=== PATIENT | male | born 1955 | race Caucasian/White ===

== ENCOUNTER 2017-10-24 18:45 | Emergency (ER) | payer BC ==
[2017-10-24 18:56] VITALS: BP 149/94
--- NOTE | 2017-10-24 18:57 | UC ---
Respiratory Complaint HPI - HPI Summary HPI Summary: Pt presents with a dry cough for the past 5-6 days. He tells me that he was in his usual state of health until 5-6 days ago when he developed a dry cough that seems worse as the day goes on. Has a scratch at the back of his throat that always makes him cough. Says that he wants to get treated before he develops bronchitis. He has not taken anything for this. Denies fever, chills, sore throat, sinus symptoms, SOB, chest pain, abdominal pain, n/v/d/c, or body aches. - History of Current Complaint Chief Complaint: UCGeneralIllness Stated Complaint: URI Hx Obtained From: Patient Onset/Duration: Gradual Onset Severity Initially: Mild Severity Currently: Mild Pain Intensity: 1 Pain Scale Used: 0-10 Numeric Character: Cough: Nonproductive - Allergies/Home Medications Allergies/Adverse Reactions: Allergies Allergy/AdvReac Type Severity Reaction Status Date / Time Carisoprodol [From Soma] Allergy Swelling Verified 10/24/17 18:48 Of Face,Lips,& Throat Ciprofloxacin [From Cipro] Allergy Swelling Verified 10/24/17 18:48 Of Face,Lips,& Throat Dextromethorphan Allergy Swelling Verified 10/24/17 18:48 [From NyQuil Nighttime Of Cold/Flu Medicine] Face,Lips,& Throat Doxylamine Allergy Swelling Verified 10/24/17 18:48 [From NyQuil Nighttime Of Cold/Flu Medicine] Face,Lips,& Throat Ethanol Allergy Swelling Verified 10/24/17 18:48 [From NyQuil Nighttime Of Cold/Flu Medicine] Face,Lips,& Throat Pseudoephedrine Allergy Swelling Verified 10/24/17 18:48 [From NyQuil Nighttime Of Cold/Flu Medicine] Face,Lips,& Throat Home Medications: Home Medications Lisinopril TAB* [Prinivil TAB*] 10 mg PO DAILY 10/24/17 [History Confirmed 10/24] Pramipexole TAB* [Mirapex TAB*] 0.125 mg PO BEDTIME 10/24/17 [History Confirmed 10/24/17] PMH/Surg Hx/FS Hx/Imm Hx Cardiovascular History: Hypertension - Surgical History Surgical History: Yes Surgery Procedure, Year, and Place: tonsils; inguinal hernia - Family History Known Family History: Positive: Hypertension - Social History Occupation: Retired Lives: With Family Alcohol Use: Occasionally Substance Use Type: None Smoking Status (MU): Never Smoked Tobacco Review of Systems Constitutional: Negative Skin: Negative Eyes: Negative ENT: Negative Respiratory: Cough Cardiovascular: Negative Gastrointestinal: Negative Musculoskeletal: Negative Neurological: Negative Psychological: Negative All Other Systems Reviewed And Are Negative: Yes Physical Exam Triage Information Reviewed: Yes Appearance: Well-Appearing, No Pain Distress, Well-Nourished Vital Signs: Initial Vital Signs Temp 98.9 F 10/24/17 18:50 Pulse 103 10/24/17 18:50 Resp 18 10/24/17 18:50 BP 149/94 10/24/17 18:50 Pulse Ox 98 10/24/17 18:50 Vital Signs Reviewed: Yes Eyes: Positive: Conjunctiva Clear. Negative: Conjunctiva Inflamed, Discharge ENT: Positive: Hearing grossly normal, Pharynx normal, TMs normal, Uvula midline. Negative: Pharyngeal erythema, Nasal congestion, Nasal drainage, TM bulging, TM dull, TM red, Tonsillar swelling, Tonsillar exudate, Hoarse voice, Sinus tenderness Neck: Positive: Supple, Nontender, No Lymphadenopathy Respiratory: Positive: Chest non-tender, Lungs clear, Normal breath sounds, No respiratory distress, No accessory muscle use Cardiovascular: Positive: RRR, No Murmur, Pulses Normal Neurological: Positive: Alert Psychological: Positive: Age Appropriate Behavior Skin: Negative: rashes UC Diagnostic Evaluation - Laboratory O2 Sat by Pulse Oximetry: 98 Respiratory Course/Dx - Course Course Of Treatment: Suspect bronchitis vs viral cough. No need for anbx at this time. - Differential Dx/Diagnosis Provider Diagnoses: Bronchitis Discharge - Discharge Plan Condition: Stable Disposition: HOME Prescriptions: Benzonatate CAP* [Tessalon 100 MG CAP*] 100 mg PO TID PRN #21 cap PRN Reason: Cough Guaifenesin-Codeine [G Tussin AC 100-10 mg/5Ml] 5 ml PO BEDTIME PRN #30 ml MDD 5mL PRN Reason: Cough Patient Education Materials: Acute Bronchitis (ED) Referrals: Eleazar Carlos MD [Primary Care Provider] - Additional Instructions: If you develop a fever, shortness of breath, chest pain, new or worsening symptoms - please call your PCP or go to the ED. Your blood pressure was high at todays visit. Please see your primary provider within 4 weeks for recheck and re-evaluation
== END 2017-10-24 19:16 | disposition home or self-care (01) ==
LOC: UCEAST 18:45
DX: J40 Bronchitis, not specified as acute or chronic (principal); I10 Essential (primary) hypertension
CPT/HCPCS: 99212; G0463

== ENCOUNTER 2018-01-19 18:22 | Emergency (ER) | payer BC ==
--- NOTE | 2018-01-19 18:36 | UC ---
Throat Pain/Nasal Avelino HPI - HPI Summary HPI Summary: Pt presents with sinus pain/pressure/congestion for the last week - getting progressively worse. Has not been taking anything OTC. Denies fever, chills, SOB , chest pain, abdominal pain, n/v/d/c. - History of Current Complaint Stated Complaint: SINUS PAIN,COLD Time Seen by Provider: 01/19/18 18:36 Hx Obtained From: Patient Onset/Duration: Gradual Onset Severity: Moderate Pain Intensity: 6 Pain Scale Used: 0-10 Numeric - Allergies/Home Medications Allergies/Adverse Reactions: Allergies Allergy/AdvReac Type Severity Reaction Status Date / Time acetaminophen [From NyQuil] Allergy Swelling Verified 01/19/18 18:49 Of Face,Lips,& Throat carisoprodol [From Soma] Allergy Swelling Verified 01/19/18 18:49 Of Face,Lips,& Throat ciprofloxacin [From Cipro] Allergy Swelling Verified 01/19/18 18:50 Of Face,Lips,& Throat dextromethorphan Allergy Swelling Verified 01/19/18 18:49 [From NyQuil] Of Face,Lips,& Throat doxylamine [From NyQuil] Allergy Swelling Verified 01/19/18 18:49 Of Face,Lips,& Throat pseudoephedrine [From NyQuil] Allergy Swelling Verified 01/19/18 18:49 Of Face,Lips,& Throat Home Medications: Home Medications Cholecalciferol (Vitamin D3) [Vitamin D3] 2,000 unit PO DAILY 01/19/18 [History Confirmed 01/19/18] Magnesium Oxide [Kp Mag-Oxide Magnesium] 400 mg PO EVERY OTHER DAY 01/19/18 [ History Confirmed 01/19/18] PMH/Surg Hx/FS Hx/Imm Hx Cardiovascular History: Hypertension - Surgical History Surgical History: Yes Surgery Procedure, Year, and Place: tonsils; inguinal hernia - Family History Known Family History: Positive: Hypertension - Social History Occupation: Employed Full-time Lives: With Family Alcohol Use: Occasionally Substance Use Type: None Smoking Status (MU): Never Smoked Tobacco Review of Systems Constitutional: Negative Skin: Negative Eyes: Negative ENT: Nasal Discharge, Sinus Congestion, Sinus Pain/Tenderness Respiratory: Negative Cardiovascular: Negative Gastrointestinal: Negative Motor: Negative Neurovascular: Negative Neurological: Negative Psychological: Negative All Other Systems Reviewed And Are Negative: Yes Physical Exam - Summary Physical Exam Summary: GENERAL: NAD. WDWN HEENT: NC/AT. Conjunctiva clear without inflammation or discharge. TMs intact , no bulging, erythema, or edema. Nasal mucosa mildly swollen and erythematous with clear discharge. TTP maxillary and frontal sinus. Posterior oropharynx without exudates, erythema, or tonsillar enlargement. Uvula midline. NECK: Supple without lymphadenopathy CHEST: CTAB. No r/r/w. No accessory muscle use. Breathing comfortably and in no distress. CV: RRR. Without m/r/g. Pulses intact. SKIN: No rash or erythema noted. NEURO: Alert. CN II-XII grossly intact. PSYCH: Age appropriate behavior. Triage Information Reviewed: Yes Throat Pain/Nasal Course/Dx - Course Course Of Treatment: Sinusitis - pt says that zpak works well for him and he tolerates this without difficulty. - Differential Dx/Diagnosis Provider Diagnoses: Sinusitis Discharge - Sign-Out/Discharge Documenting (check all that apply): Discharge - Discharge Plan Condition: Stable Disposition: HOME Prescriptions: Azithromycin TAB* [Zithromax TAB (Z-ANNY) 250 mg #6 tabs] 2 tab PO .TODAY, THEN 1 DAILY #1 anny Patient Education Materials: Sinusitis (ED) Referrals: Eleazar Carlos MD [Primary Care Provider] - Additional Instructions: If you develop a fever, shortness of breath, chest pain, new or worsening symptoms - please call your PCP or go to the ED. Your blood pressure was high at todays visit. Please see your primary provider within 4 weeks for recheck and re-evaluation. - Billing Disposition and Condition Condition: STABLE Disposition: HOME
[2018-01-19 18:41] VITALS: BP 142/74
== END 2018-01-19 19:20 | disposition home or self-care (01) ==
LOC: UCEAST 18:22
DX: J32.9 Chronic sinusitis, unspecified (principal); Z88.6 Allergy status to analgesic agent; Z88.3 Allergy status to other anti-infective agents; Z88.8 Allergy status to other drugs, medicaments and biological substances
CPT/HCPCS: 99212; G0463

== ENCOUNTER 2018-03-23 13:43 | Emergency (ER) | payer BC ==
[2018-03-23 13:51] VITALS: BP 126/73
--- NOTE | 2018-03-23 13:52 | UC ---
Respiratory Complaint HPI - HPI Summary HPI Summary: 62 yo male presents with a dry cough for the last two nights. He tells me that he suffers from post nasal drip and sometimes this makes his throat tickle and he coughs a lot. His PCP will usually give him tessalon and cough syrup at bedtime which helps a lot. Has been taking sudafed OTC with no relief. Denies fever, chills, sore throat, SOB, chest pain. - History of Current Complaint Hx Obtained From: Patient Onset/Duration: Sudden Onset Severity Currently: None Pain Intensity: 0 Character: Cough: Nonproductive <Finn Root - Last Filed: 03/23/18 14:04> <Enrique Conner - Last Filed: 03/23/18 14:20> - History of Current Complaint Chief Complaint: UCGeneralIllness Stated Complaint: COUGH Time Seen by Provider: 03/23/18 13:52 - Allergies/Home Medications Allergies/Adverse Reactions: Allergies Allergy/AdvReac Type Severity Reaction Status Date / Time carisoprodol [From Soma] Allergy Swelling Verified 03/23/18 13:52 Of Face,Lips,& Throat ciprofloxacin [From Cipro] Allergy Swelling Verified 03/23/18 13:52 Of Face,Lips,& Throat dextromethorphan Allergy Swelling Verified 03/23/18 13:52 [From NyQuil] Of Face,Lips,& Throat doxylamine [From NyQuil] Allergy Swelling Verified 03/23/18 13:52 Of Face,Lips,& Throat pseudoephedrine [From NyQuil] Allergy Swelling Verified 03/23/18 13:52 Of Face,Lips,& Throat PMH/Surg Hx/FS Hx/Imm Hx Cardiovascular History: Hypertension Neurological History: Dementia - Surgical History Surgical History: Yes Surgery Procedure, Year, and Place: tonsils; inguinal hernia - Family History Known Family History: Positive: Hypertension - Social History Lives: With Family Alcohol Use: Occasionally Alcohol Amount: 1 glass wine /day Substance Use Type: None Smoking Status (MU): Never Smoked Tobacco <Finn Root - Last Filed: 03/23/18 14:04> Review of Systems Constitutional: Negative Skin: Negative Eyes: Negative ENT: Negative Respiratory: Cough Cardiovascular: Negative Gastrointestinal: Negative Neurovascular: Negative Neurological: Negative Psychological: Negative All Other Systems Reviewed And Are Negative: Yes <Finn Root - Last Filed: 03/23/18 14:04> Physical Exam - Summary Physical Exam Summary: GENERAL: NAD. WDWN. No pain distress. SKIN: No rashes, sores, lesions, or open wounds. HEENT: Head: AT/NC Eyes: EOM intact. Conjunctiva clear without inflammation or discharge. Ears: Hearing grossly normal. TMs intact, no bulging, erythema, or edema. Nose: Nasal mucosa pink and moist. NTTP maxillary and frontal sinus. Throat: Posterior oropharynx without exudates, erythema, or tonsillar enlargement. Uvula midline. NECK: Supple. Nontender. No lymphadenopathy. CHEST: CTAB. No r/r/w. No accessory muscle use. Breathing comfortably and in no distress. CV: RRR. Without m/r/g. Pulses intact. Brisk cap refill. NEURO: Alert. CN II-XII grossly intact. PSYCH: Age appropriate behavior. Triage Information Reviewed: Yes Vital Signs: Initial Vital Signs Temp 98.8 F 03/23/18 13:48 Pulse 75 03/23/18 13:48 Resp 18 03/23/18 13:48 BP 126/73 03/23/18 13:48 Pulse Ox 99 03/23/18 13:48 <Finn Root - Last Filed: 03/23/18 14:04> Vital Signs: Initial Vital Signs Temp 98.8 F 03/23/18 13:48 Pulse 75 03/23/18 13:48 Resp 18 03/23/18 13:48 BP 126/73 03/23/18 13:48 Pulse Ox 99 03/23/18 13:48 <Enrique Conner - Last Filed: 03/23/18 14:20> Diagnostic Evaluation - Laboratory O2 Sat by Pulse Oximetry: 99 <Finn Root - Last Filed: 03/23/18 14:04> Respiratory Course/Dx - Course Course Of Treatment: Suspect cough caused by his post nasal drip. Advised to try OTC claritin in addition to rxs - Differential Dx/Diagnosis Provider Diagnoses: Cough <Finn Root - Last Filed: 03/23/18 14:04> Discharge - Sign-Out/Discharge Documenting (check all that apply): Discharge/Admit/Transfer - Billing Disposition and Condition Condition: STABLE Disposition: Home <Finn Root - Last Filed: 03/23/18 14:04> - Billing Disposition and Condition Condition: STABLE Disposition: Home <Enrique Conner - Last Filed: 03/23/18 14:20> - Discharge Plan Condition: Stable Disposition: HOME Prescriptions: Benzonatate CAP* [Tessalon 100 MG CAP*] 100 mg PO TID PRN #21 cap PRN Reason: Cough Codeine Phosphate/Guaifenesin [Guaifen-Codeine 100-10 mg/5 ml] 5 ml PO BEDTIME PRN #35 ml MDD 5mL PRN Reason: Cough Patient Education Materials: Acute Cough (ED) Referrals: Eleazar Carlos MD [Primary Care Provider] - Additional Instructions: If you develop a fever, shortness of breath, chest pain, new or worsening symptoms - please call your PCP or go to the ED. Per institutional requirements, I have reviewed the chart, however, I was not consulted specifically or made aware of this patient by the above midlevel provider. I did not personally evaluate, interact with , or disposition this patient.
== END 2018-03-23 14:17 | disposition home or self-care (01) ==
LOC: UCEAST 13:43
DX: R05 Cough (principal); R09.82 Postnasal drip; I10 Essential (primary) hypertension; Z88.8 Allergy status to other drugs, medicaments and biological substances; Z88.1 Allergy status to other antibiotic agents
CPT/HCPCS: 99212; G0463

== ENCOUNTER 2018-05-13 07:56 | Emergency (ER) | payer BC ==
[2018-05-13 08:11] VITALS: BP 155/94
[2018-05-13] MEDS ORDERED: Tetan/Diph/Pertus SYR(Tdap)* 0.5 ML SYR(BOOSTRIX) use SYR IM ONE (08:14)
--- NOTE | 2018-05-13 08:49 | UC ---
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 ACCOMPANIED BY HIS FRIEND WHO REMOVED THE FISH HOOK. PATIENT IS HERE FOR TDAP BOOSTER. - History of Current Complaint Chief Complaint: UCSkin Time Seen by Provider: 05/13/18 08:14 Stated Complaint: FISH LURE IN HAND Hx Obtained From: Patient Onset/Duration: Sudden Onset, Lasting Hours, Still Present Timing: Constant Onset Severity: Mild Current Severity: Mild Pain Intensity: 0 Pain Scale Used: 0-10 Numeric Location: Hand (Left) - 2ND FINGER Character: Pain Aggravating Factor(s): Touch Alleviating Factor(s): Nothing - Allergy/Home Medications Allergies/Adverse Reactions: Allergies Allergy/AdvReac Type Severity Reaction Status Date / Time carisoprodol [From Soma] Allergy Swelling Verified 05/13/18 08:11 Of Face,Lips,& Throat ciprofloxacin [From Cipro] Allergy Swelling Verified 05/13/18 08:11 Of Face,Lips,& Throat dextromethorphan Allergy Swelling Verified 05/13/18 08:11 [From NyQuil] Of Face,Lips,& Throat doxylamine [From NyQuil] Allergy Swelling Verified 05/13/18 08:11 Of Face,Lips,& Throat pseudoephedrine [From NyQuil] Allergy Swelling Verified 05/13/18 08:11 Of Face,Lips,& Throat Review of Systems Constitutional: Negative Skin: Other - PUNCTURE WOUND LEFT INDEX FINGER Respiratory: Negative Cardiovascular: Negative Gastrointestinal: Negative All Other Systems Reviewed And Are Negative: Yes PMH/Surg Hx/FS Hx/Imm Hx - Additional Past Medical History Additional PMH: RESTLESS LEGS Cardiovascular History: Hypertension - Surgical History Surgical History: Yes Surgery Procedure, Year, and Place: tonsils; inguinal hernia - Family History Known Family History: Positive: Hypertension - Social History Alcohol Use: Occasionally Alcohol Amount: 1 glass wine /day Substance Use Type: None Smoking Status (MU): Never Smoked Tobacco Physical Exam Triage Information Reviewed: Yes Appearance: Well-Appearing, No Pain Distress, Well-Nourished Vital Signs: Initial Vital Signs Temp 98.2 F 05/13/18 08:07 Pulse 69 05/13/18 08:07 Resp 18 05/13/18 08:07 BP 155/94 05/13/18 08:07 Pulse Ox 98 05/13/18 08:07 Vital Signs Reviewed: Yes Eyes: Positive: Conjunctiva Clear ENT: Positive: Hearing grossly normal Neck: Positive: Supple Respiratory: Positive: No respiratory distress, No accessory muscle use Cardiovascular: Positive: Pulses Normal Abdomen Description: Positive: Soft Musculoskeletal: Positive: ROM Intact, No Edema Neurological: Positive: Alert Psychological: Positive: Age Appropriate Behavior Skin: Positive: Other - PUNCTURE WOUND LEFT INDEX FINGER VOLAR SURFACE OVERLYING PROXIMAL PHALANX Course/Dx - Diagnoses Provider Diagnoses: 1. PUNCTURE WOUND - LEFT INDEX FINGER. 2. TDAP BOOSTER Discharge - Sign-Out/Discharge Documenting (check all that apply): Patient Departure - Discharge Plan Condition: Stable Disposition: HOME Prescriptions: Cephalexin CAP* [Keflex 500 CAP*] 1,000 mg PO BID #20 cap Patient Education Materials: Soft Tissue Foreign Body (ED), Puncture Wound (ED) Referrals: Eleazar Carlos MD [Primary Care Provider] - If Needed Additional Instructions: KEFLEX TWICE DAILY FOR 5 DAYS TO PREVENT INFECTION. KEEP THE AREA CLEAN AND COVERED WITH A BANDAGE UNTIL HEALED. SEEK FOLLOW-UP IF YOU DEVELOP SPREADING REDNESS OF THE SKIN, PURULENT DRAINAGE, FEVER, INCREASED PAIN OR ANY OTHER CONCERNING SYMPTOMS. TETANUS IMMUNIZATION GIVEN (TDAP): You have been given an immunization against tetanus. Please record this in your records. In general, a booster is needed only once every 10 years. The tetanus shot protects against tetanus or "lockjaw," which is a complication of certain wound infections (the tetanus shot cannot protect against the actual infection). The immunization site may become warm and red due to local reaction. If this occurs, apply warm compresses and take aspirin or ibuprofen to reduce inflammation and discomfort. Return for evaluation if the reaction becomes severe. - Billing Disposition and Condition Condition: STABLE Disposition: Home
== END 2018-05-13 08:50 | disposition home or self-care (01) ==
LOC: UCEAST 07:56
DX: S61.231A Puncture wound without foreign body of left index finger without damage to nail, initial encounter (principal); W26.8XXA Contact with other sharp object(s), not elsewhere classified, initial encounter; Y93.9 Activity, unspecified; Y92.9 Unspecified place or not applicable; Z23 Encounter for immunization; Z88.1 Allergy status to other antibiotic agents; Z88.8 Allergy status to other drugs, medicaments and biological substances
CPT/HCPCS: 90715; 99212; G0463

== ENCOUNTER 2018-08-28 07:09 | Emergency (ER) | payer BC ==
[2018-08-28 07:20] VITALS: BP 139/80
--- NOTE | 2018-08-28 07:20 | UC ---
UC General HPI - HPI Summary HPI Summary: 63-year-old otherwise healthy male presents with 3 total days of upper respiratory complaints with a cough gets worse at night. He reports minor nasal congestion without fever. He has had mild sore throat. He denies any shortness of breath, abdominal pain or diarrhea. He did get his flu vaccine this year. - History of Current Complaint Stated Complaint: COUGH Time Seen by Provider: 08/28/18 07:12 Hx Obtained From: Patient - Allergy/Home Medications Allergies/Adverse Reactions: Allergies Allergy/AdvReac Type Severity Reaction Status Date / Time carisoprodol [From Soma] Allergy Swelling Verified 08/28/18 07:13 Of Face,Lips,& Throat ciprofloxacin [From Cipro] Allergy Swelling Verified 08/28/18 07:13 Of Face,Lips,& Throat dextromethorphan Allergy Swelling Verified 08/28/18 07:13 [From NyQuil] Of Face,Lips,& Throat doxylamine [From NyQuil] Allergy Swelling Verified 08/28/18 07:13 Of Face,Lips,& Throat pseudoephedrine [From NyQuil] Allergy Swelling Verified 08/28/18 07:13 Of Face,Lips,& Throat PMH/Surg Hx/FS Hx/Imm Hx Previously Healthy: Yes - Surgical History Surgical History: Yes Surgery Procedure, Year, and Place: tonsils; inguinal hernia - Family History Known Family History: Positive: Hypertension - Social History Occupation: Employed Part-time, Retired Alcohol Use: Occasionally Alcohol Amount: 1 glass wine /day Substance Use Type: None Smoking Status (MU): Never Smoked Tobacco Review of Systems All Other Systems Reviewed And Are Negative: Yes Constitutional: Negative: Fever Skin: Negative: Rash ENT: Positive: Sore Throat, Nasal Discharge, Sinus Congestion. Negative: Ear Ache, Sinus Pain/Tenderness Respiratory: Positive: Cough. Negative: Shortness Of Breath Cardiovascular: Negative: Chest Pain Gastrointestinal: Negative: Vomiting Physical Exam Triage Information Reviewed: Yes Appearance: Well-Appearing, No Pain Distress, Well-Nourished Eyes: Positive: Conjunctiva Clear ENT: Positive: Pharyngeal erythema, Nasal congestion, Nasal drainage, TMs normal. Negative: Sinus tenderness Neck: Positive: Nontender, No Lymphadenopathy Respiratory: Positive: Lungs clear Cardiovascular: Positive: RRR Neurological: Positive: Alert Skin Exam: Normal Course/Dx - Course Course Of Treatment: Patient with minor cough, congestion. Treat symptomatically. - Diagnoses Provider Diagnosis: Upper respiratory infection Discharge - Sign-Out/Discharge Documenting (check all that apply): Patient Departure All imaging exams completed and their final reports reviewed: No Studies - Discharge Plan Condition: Improved Disposition: HOME Prescriptions: Benzonatate CAP* [Tessalon 100 MG CAP*] 100 mg PO Q6H PRN #30 cap PRN Reason: Cough Guaifenesin/Pseudo 600/60(NF) [Mucinex D 600/60 (NF)] 1 tab PO BID PRN #12 tab PRN Reason: Congestion Patient Education Materials: Upper Respiratory Infection (ED) Referrals: Eleazar Carlos MD [Primary Care Provider] - Additional Instructions: Humidifier while sleeping. Steam shower before bed. Maria Guadalupe pot or sinus rinse may help. Return with fever, difficulty breathing, worse, new symptoms or other concerns. Follow-up with your family doctor in the next several days. - Billing Disposition and Condition Condition: IMPROVED Disposition: Home - Attestation Statements Document Initiated by Jeevanibaureliano: No
== END 2018-08-28 07:25 | disposition home or self-care (01) ==
LOC: UCEAST 07:09
DX: J06.9 Acute upper respiratory infection, unspecified (principal); Z88.1 Allergy status to other antibiotic agents; Z88.8 Allergy status to other drugs, medicaments and biological substances
CPT/HCPCS: 99212; G0463

== ENCOUNTER 2018-09-01 09:36 | Emergency (ER) | payer BC | END 2018-09-01 10:07 | disposition left against medical advice (07) | LOC: UCEAST 09:36 | DX: R09.89 Other specified symptoms and signs involving the circulatory and respiratory systems (principal); Z53.21 Procedure and treatment not carried out due to patient leaving prior to being seen by health care provider ==

== ENCOUNTER 2018-09-01 11:11 | Emergency (ER) | payer BC ==
[2018-09-01 12:57] VITALS: BP 142/85
--- NOTE | 2018-09-01 13:20 | ED ---
Respiratory - HPI Summary HPI Summary: 63-year-old male presents with cough for the past week. He states the cough became worse. the cough has went from dry to productive cough. He denies any chest pain or shortness breath. No sore throat. Admits to sinus congestion. She has been taking Mucinex and Tessalon with some relief. States is concerned that he is getting bronchitis. Has no history of asthma or COPD. Is a smoker. - History of Current Complaint Chief Complaint: UCRespiratory Stated Complaint: COUGH,CONGESTED Time Seen by Provider: 09/01/18 13:17 Pain Intensity: 1 - Allergy/Home Medications Allergies/Adverse Reactions: Allergies Allergy/AdvReac Type Severity Reaction Status Date / Time carisoprodol [From Soma] Allergy Swelling Verified 09/01/18 12:54 Of Face,Lips,& Throat ciprofloxacin [From Cipro] Allergy Swelling Verified 09/01/18 12:54 Of Face,Lips,& Throat dextromethorphan Allergy Swelling Verified 09/01/18 12:54 [From NyQuil] Of Face,Lips,& Throat doxylamine [From NyQuil] Allergy Swelling Verified 09/01/18 12:54 Of Face,Lips,& Throat pseudoephedrine [From NyQuil] Allergy Swelling Verified 09/01/18 12:54 Of Face,Lips,& Throat Home Medications: Home Medications Lisinopril 10 mg PO DAILY WITH MEAL 09/01/18 [History Confirmed 09/01/18] Pramipexole [Mirapex] 1.5 mg PO TID 09/01/18 [History Confirmed 09/01/18] PMH/Surg Hx/FS Hx/Imm Hx Endocrine/Hematology History: Denies: Hx Diabetes, Hx Thyroid Disease Cardiovascular History: Reports: Hx Hypertension Respiratory History: Denies: Hx Asthma, Hx Chronic Obstructive Pulmonary Disease (COPD) GI History: Denies: Hx Ulcer Musculoskeletal History: Denies: Hx Rheumatoid Arthritis, Hx Osteoporosis - Surgical History Surgery Procedure, Year, and Place: tonsils; inguinal hernia Infectious Disease History: No Infectious Disease History: Denies: Hx Clostridium Difficile, Hx Hepatitis, Hx Human Immunodeficiency Virus (HIV), Hx of Known/Suspected MRSA, Hx Shingles, Hx Tuberculosis, Hx Known/ Suspected VRE, Hx Known/Suspected VRSA, History Other Infectious Disease, Traveled Outside the [place] in Last 30 Days - Family History Known Family History: Positive: Hypertension - Social History Alcohol Use: Weekly Alcohol Amount: 1 glass wine /day Substance Use Type: Reports: None Smoking Status (MU): Never Smoked Tobacco Review of Systems Negative: Fever Positive: Nasal Discharge. Negative: Sore Throat Negative: Chest Pain Positive: Cough. Negative: Shortness Of Breath All Other Systems Reviewed And Are Negative: Yes Physical Exam Triage Information Reviewed: Yes Vital Signs On Initial Exam: Initial Vitals Temp Pulse Resp BP Pulse Ox 97.9 F 81 18 142/85 100 09/01/18 12:54 09/01/18 12:54 09/01/18 12:54 09/01/18 12:54 09/01/18 12:54 Vital Signs Reviewed: Yes Appearance: Positive: Well-Appearing Skin: Positive: Warm, Dry Head/Face: Positive: Normal Head/Face Inspection Eyes: Positive: Normal, EOMI, FADY ENT: Positive: Normal ENT inspection, Pharynx normal, TMs normal Neck: Positive: Supple, Nontender, No Lymphadenopathy Respiratory/Lung Sounds: Positive: Clear to Auscultation, Breath Sounds Present Cardiovascular: Positive: Normal, RRR Abdomen Description: Positive: Nontender, Soft Bowel Sounds: Positive: Present Musculoskeletal: Positive: Normal Neurological: Positive: Normal Psychiatric: Positive: Normal Diagnostics - Vital Signs Vital Signs Temp Pulse Resp BP Pulse Ox 09/01/18 12:54 97.9 F 81 18 142/85 100 - Laboratory Lab Statement: Any lab studies that have been ordered have been reviewed, and results considered in the medical decision making process. - Radiology chest Radiology Interpretation Completed By: Radiologist Summary of Radiographic Findings: copd Disposition - Course Course Of Treatment: 63-year-old male presents with cough for the past week. He states the cough became worse. the cough has went from dry to productive cough. He denies any chest pain or shortness breath. No sore throat. Admits to sinus congestion. She has been taking Mucinex and Tessalon with some relief. States is concerned that he is getting bronchitis. Has no history of asthma or COPD. Is a smoker. On exam lungs clear to auscultation. Chest x- ray copd. We'll place on prednisone and Tessalon. Patient understands agrees with plan. - Differential Dx - Cardiopulmonary Differential Diagnoses - Cardiopulmonary: Bronchitis, Influenza, Lower Resp Infection - Diagnoses Provider Diagnoses: Upper respiratory infection Discharge - Sign-Out/Discharge Documenting (check all that apply): Patient Departure All imaging exams completed and their final reports reviewed: Yes - Discharge Plan Condition: Good Disposition: HOME Prescriptions: Benzonatate CAP* [Tessalon 100 MG CAP*] 100 mg PO TID #21 cap predniSONE TAB* [Deltasone TAB*] 50 mg PO DAILY #5 tab Patient Education Materials: Upper Respiratory Infection (ED) Referrals: Eleazar Carlos MD [Primary Care Provider] - Additional Instructions: Use Tessalon three times a day for cough Take steroid once a day for 5 days Use humidifier or place warm bowls of water around the room Cough can last up to 4 weeks Follow up with primary care physician in 5 days Return to ED if develop chest pain or shortness of breath or any new or worsening symptoms - Billing Disposition and Condition Condition: GOOD Disposition: Home - Attestation Statements Provider Attestation: Per institutional requirements, I have reviewed the chart, however, I was not consulted specifically or made aware of this patient by the midlevel provider. I did not personally evaluate, interact with , or disposition this patient.
== END 2018-09-01 13:52 | disposition home or self-care (01) ==
LOC: UCEAST 11:11
DX: J06.9 Acute upper respiratory infection, unspecified (principal); F17.210 Nicotine dependence, cigarettes, uncomplicated; Z88.1 Allergy status to other antibiotic agents; Z88.8 Allergy status to other drugs, medicaments and biological substances
CPT/HCPCS: 71046; 99212; G0463

== ENCOUNTER 2018-10-23 07:07 | Emergency (ER) | payer BC ==
[2018-10-23 07:15] VITALS: BP 132/82
--- NOTE | 2018-10-23 07:24 | UC ---
Throat Pain/Nasal Avelino HPI - HPI Summary HPI Summary: 63-year-old male comes to clinic today with a chief complaint of cough congestion runny nose for 3-4 days. Has been coughing up some sputum that yellow-green. He is not a smoker. He has been using some benzonatate which helps with the cough. When he is laying down the rhinorrhea is the back of his throat makes his cough worse. No fevers or chills. No wheezing. - History of Current Complaint Chief Complaint: UCRespiratory Stated Complaint: COUGH,CONGESTION Time Seen by Provider: 10/23/18 07:12 Pain Intensity: 0 - Allergies/Home Medications Allergies/Adverse Reactions: Allergies Allergy/AdvReac Type Severity Reaction Status Date / Time carisoprodol [From Soma] Allergy Swelling Verified 10/23/18 07:14 Of Face,Lips,& Throat ciprofloxacin [From Cipro] Allergy Swelling Verified 10/23/18 07:14 Of Face,Lips,& Throat dextromethorphan Allergy Swelling Verified 10/23/18 07:14 [From NyQuil] Of Face,Lips,& Throat doxylamine [From NyQuil] Allergy Swelling Verified 10/23/18 07:14 Of Face,Lips,& Throat pseudoephedrine [From NyQuil] Allergy Swelling Verified 10/23/18 07:14 Of Face,Lips,& Throat Home Medications: Home Medications Guaifenesin/Pseudoephedrne HCl [Mucinex D ER Tablet] 1 each PO DAILY PRN [History Confirmed 10/23/18] PMH/Surg Hx/FS Hx/Imm Hx Previously Healthy: Yes Cardiovascular History: Hypertension - Surgical History Surgical History: Yes Surgery Procedure, Year, and Place: tonsils; inguinal hernia - Family History Known Family History: Positive: Hypertension - Social History Alcohol Use: Occasionally Alcohol Amount: 1 glass wine /day Substance Use Type: None Smoking Status (MU): Never Smoked Tobacco Review of Systems All Other Systems Reviewed And Are Negative: Yes Constitutional: Positive: Negative Skin: Positive: Negative Eyes: Positive: Negative ENT: Positive: Sore Throat, Nasal Discharge, Sinus Congestion Respiratory: Positive: Cough Cardiovascular: Positive: Negative Gastrointestinal: Positive: Negative Motor: Positive: Negative Neurovascular: Positive: Negative Musculoskeletal: Positive: Negative Neurological: Positive: Negative Psychological: Positive: Negative Is Patient Immunocompromised?: No Physical Exam Triage Information Reviewed: Yes Appearance: No Pain Distress, Well-Nourished, Ill-Appearing - mild Vital Signs: Initial Vital Signs Temp 98.8 F 10/23/18 07:11 Pulse 79 10/23/18 07:11 Resp 14 10/23/18 07:11 BP 132/82 10/23/18 07:11 Pulse Ox 98 10/23/18 07:11 Vital Signs Reviewed: Yes Eye Exam: Normal Eyes: Positive: Conjunctiva Clear ENT: Positive: Pharyngeal erythema, Nasal congestion, Nasal drainage, TMs normal Neck exam: Normal Neck: Positive: Supple Respiratory: Positive: Lungs clear, Normal breath sounds, No respiratory distress Cardiovascular: Positive: RRR Musculoskeletal Exam: Normal Musculoskeletal: Positive: Strength Intact, ROM Intact Neurological Exam: Normal Neurological: Positive: Alert, Muscle Tone Normal Psychological Exam: Normal Psychological: Positive: Age Appropriate Behavior Skin Exam: Normal Throat Pain/Nasal Course/Dx - Course Course Of Treatment: Patient reports the last time he was here prednisone help to get him better. He is also concerned perineal get worse as he is leaving town for 3 days. DISCUSSED VIRAL VERSES BACTERIAL INFECTION AND THE ROLE OF ANTIBIOTICS. THE PATIENT WISHES TO BE ON ANTIBIOTIC AT THIS TIME. - Differential Dx/Diagnosis Provider Diagnosis: Upper respiratory infection Discharge - Sign-Out/Discharge Documenting (check all that apply): Patient Departure All imaging exams completed and their final reports reviewed: No Studies - Discharge Plan Condition: Stable Disposition: HOME Prescriptions: Azithromyxin ANNY (NF) [Z-Anny (Zithromax) 250 mg tabs #6] 2 tab PO .TODAY, THEN 1 DAILY #6 tab Benzonatate CAP* [Tessalon 100 MG CAP*] 100 mg PO TID PRN #20 cap PRN Reason: Cough predniSONE TAB* [Deltasone 20 MG TAB*] 40 mg PO DAILY #10 tab Patient Education Materials: Upper Respiratory Infection (ED) Referrals: Eleazar Carlos MD [Primary Care Provider] - Additional Instructions: FOLLOW UP WITH YOUR DOCTOR IF NOT COMPLETELY IMPROVED. GET RECHECKED FOR ANY WORSENING OF YOUR CONDITION OR QUESTIONS OR CONCERNS. - Billing Disposition and Condition Condition: STABLE Disposition: Home
== END 2018-10-23 07:25 | disposition home or self-care (01) ==
LOC: UCEAST 07:07
DX: J06.9 Acute upper respiratory infection, unspecified (principal); Z88.1 Allergy status to other antibiotic agents; Z88.8 Allergy status to other drugs, medicaments and biological substances
CPT/HCPCS: 99212; G0463

== ENCOUNTER 2019-01-10 18:37 | Emergency (ER) | payer BC ==
[2019-01-10 18:45] VITALS: BP 147/84
--- NOTE | 2019-01-10 19:01 | UC ---
Throat Pain/Nasal Avelino HPI - HPI Summary HPI Summary: 63-year-old male comes in with a chief complaint of upper respiratory tract infection symptoms for about 4 days. Patient's rhinorrhea has turned green he' s having primarily sinus pressure and postnasal drip. He has had some coughing and sputum production but he feels like it's mostly postnasal drip. Denies any wheezing or chest congestion. He's tried [id number] medications was helped some with the symptoms but not very much. - History of Current Complaint Chief Complaint: UCGeneralIllness Stated Complaint: COUGH Time Seen by Provider: 01/10/19 18:54 Pain Intensity: 0 - Allergies/Home Medications Allergies/Adverse Reactions: Allergies Allergy/AdvReac Type Severity Reaction Status Date / Time carisoprodol [From Soma] Allergy Swelling Verified 01/10/19 18:45 Of Face,Lips,& Throat ciprofloxacin [From Cipro] Allergy Swelling Verified 01/10/19 18:45 Of Face,Lips,& Throat dextromethorphan Allergy Swelling Verified 01/10/19 18:45 [From NyQuil] Of Face,Lips,& Throat doxylamine [From NyQuil] Allergy Swelling Verified 01/10/19 18:45 Of Face,Lips,& Throat pseudoephedrine [From NyQuil] Allergy Swelling Verified 01/10/19 18:45 Of Face,Lips,& Throat Home Medications: Home Medications Doxylamine/Phenylep/Dm/Aspirin [Kelsi-[place] Day-Night Tab Eff] 1 tab PO Q6HR PRN 01/10/19 [History Confirmed 01/10/19] PMH/Surg Hx/FS Hx/Imm Hx Previously Healthy: Yes Cardiovascular History: Hypertension - Surgical History Surgical History: Yes Surgery Procedure, Year, and Place: tonsils; inguinal hernia - Family History Known Family History: Positive: Hypertension - Social History Alcohol Use: Daily Alcohol Amount: 1 glass wine /day Substance Use Type: None Smoking Status (MU): Never Smoked Tobacco Review of Systems All Other Systems Reviewed And Are Negative: Yes Constitutional: Positive: Negative Skin: Positive: Negative Eyes: Positive: Negative ENT: Positive: Sore Throat, Nasal Discharge, Sinus Congestion, Sinus Pain/ Tenderness Respiratory: Positive: Cough Cardiovascular: Positive: Negative Gastrointestinal: Positive: Negative Motor: Positive: Negative Neurovascular: Positive: Negative Musculoskeletal: Positive: Negative Neurological: Positive: Negative Psychological: Positive: Negative Is Patient Immunocompromised?: No Physical Exam Triage Information Reviewed: Yes Appearance: No Pain Distress, Well-Nourished, Ill-Appearing - MILD Vital Signs: Initial Vital Signs Temp 99.0 F 01/10/19 18:42 Pulse 79 01/10/19 18:42 Resp 22 01/10/19 18:42 BP 147/84 01/10/19 18:42 Pulse Ox 99 01/10/19 18:42 Vital Signs Reviewed: Yes Eye Exam: Normal Eyes: Positive: Conjunctiva Clear ENT: Positive: Pharyngeal erythema, Nasal congestion, Nasal drainage, TMs normal Neck: Positive: Supple Respiratory: Positive: Lungs clear, Normal breath sounds, No respiratory distress Cardiovascular: Positive: RRR Musculoskeletal Exam: Normal Musculoskeletal: Positive: Strength Intact, ROM Intact Neurological Exam: Normal Neurological: Positive: Alert, Muscle Tone Normal Psychological Exam: Normal Psychological: Positive: Age Appropriate Behavior Skin Exam: Normal Throat Pain/Nasal Course/Dx - Course Course Of Treatment: DISCUSSED VIRAL VERSES BACTERIAL INFECTION AND THE ROLE OF ANTIBIOTICS. THE PATIENT WISHES TO BE ON ANTIBIOTICS AT THIS TIME. - Differential Dx/Diagnosis Provider Diagnosis: Upper respiratory infection Discharge - Sign-Out/Discharge Documenting (check all that apply): Patient Departure All imaging exams completed and their final reports reviewed: No Studies - Discharge Plan Condition: Stable Disposition: HOME Prescriptions: Amoxicillin/Clavulanate TAB* [Augmentin TAB 875*] 875 mg PO BID #20 tab Patient Education Materials: Upper Respiratory Infection (ED) Referrals: Eleazar Carlos MD [Primary Care Provider] - Additional Instructions: FOLLOW UP WITH YOUR DOCTOR IF NOT COMPLETELY IMPROVED. GET REEVALUATED SOONER FOR WORSENING OF YOUR CONDITION OR QUESTIONS OR CONCERNS. - Billing Disposition and Condition Condition: STABLE Disposition: Home
== END 2019-01-10 19:09 | disposition home or self-care (01) ==
LOC: UCEAST 18:37
DX: J06.9 Acute upper respiratory infection, unspecified (principal); I10 Essential (primary) hypertension; Z88.8 Allergy status to other drugs, medicaments and biological substances; Z88.1 Allergy status to other antibiotic agents
CPT/HCPCS: 99212; G0463

== ENCOUNTER 2019-01-28 20:52 | Emergency (ER) | payer BC ==
[2019-01-28 20:59] VITALS: BP 120/77
--- NOTE | 2019-01-28 21:28 | UC ---
Ear Complaint HPI - HPI Summary HPI Summary: 63-year-old male presents with complaints of 2-3 weeks of bilateral ear fullness and decreased hearing. States he has a history of impacted cerumen which is required irrigation in the past. Denies fever, chills, ear pain, tinnitus, vertigo, or URI symptoms. - History of Current Complaint Chief Complaint: UCEar Stated Complaint: EARS CLOGGED Time Seen by Provider: 01/28/19 21:03 Hx Obtained From: Patient Pain Intensity: 0 - Allergies/Home Medications Allergies/Adverse Reactions: Allergies Allergy/AdvReac Type Severity Reaction Status Date / Time carisoprodol [From Soma] Allergy Swelling Verified 01/28/19 20:59 Of Face,Lips,& Throat ciprofloxacin [From Cipro] Allergy Swelling Verified 01/28/19 20:59 Of Face,Lips,& Throat dextromethorphan Allergy Swelling Verified 01/28/19 20:59 [From NyQuil] Of Face,Lips,& Throat doxylamine [From NyQuil] Allergy Swelling Verified 01/28/19 20:59 Of Face,Lips,& Throat pseudoephedrine [From NyQuil] Allergy Swelling Verified 01/28/19 20:59 Of Face,Lips,& Throat PMH/Surg Hx/FS Hx/Imm Hx Cardiovascular History: Hypertension - Surgical History Surgical History: Yes Surgery Procedure, Year, and Place: tonsils; inguinal hernia - Family History Known Family History: Positive: Hypertension - Social History Occupation: Employed Full-time Lives: With Family Alcohol Use: Occasionally Alcohol Amount: 1 glass wine /day Substance Use Type: None Smoking Status (MU): Never Smoked Tobacco Review of Systems All Other Systems Reviewed And Are Negative: Yes Constitutional: Negative: Fever, Chills Eyes: Negative: Drainage, Eye Redness ENT: Positive: Other - Bilateral ear fullness, decreased hearing.. Negative: Sore Throat, Ear Ache, Nasal Discharge, Sinus Congestion, Sinus Pain/Tenderness Respiratory: Negative: Cough Cardiovascular: Positive: Negative Gastrointestinal: Positive: Negative Genitourinary: Positive: Negative Musculoskeletal: Positive: Negative Neurological: Positive: Negative Is Patient Immunocompromised?: No Physical Exam - Summary Physical Exam Summary: GENERAL APPEARANCE: Well developed, well nourished, alert and cooperative, and appears to be in no acute distress. EYES: Conjunctiva clear. No drainage. EARS: Bilateral external auditory canals with cerumen impaction. TMs not visualized. NOSE: No nasal discharge. THROAT: Pharynx normal No tonsilar inflammation, swelling, exudate, or lesions. Uvula midline. Oral cavity normal. Teeth and gingiva in good general condition. NECK: Neck supple, non-tender without lymphadenopathy. CARDIAC: Normal S1 and S2. No S3, S4 or murmurs. Rhythm is regular. There is no peripheral edema, cyanosis or pallor. Extremities are warm and well perfused. Capillary refill is less than 2 seconds. Peripheral pulses intact. LUNGS: Clear to auscultation without rales, rhonchi, wheezing or diminished breath sounds. ABDOMEN: Positive bowel sounds. Soft, nondistended, nontender. No guarding or rebound. No masses or hepatosplenomegally. MUSKULOSKELETAL: ROM intact to all extremities. No joint erythema or tenderness. Normal muscular development. Normal gait. SKIN: Skin normal color, texture and turgor with no lesions or eruptions. Triage Information Reviewed: Yes Vital Signs: Initial Vital Signs Temp 98.8 F 01/28/19 20:56 Pulse 77 01/28/19 20:56 Resp 18 01/28/19 20:56 BP 120/77 01/28/19 20:56 Pulse Ox 98 01/28/19 20:56 Vital Signs Reviewed: Yes Re-Evaluation - Re-Evaluation First Eval Re-Evaluation Time: 21:30 Change: Improved Comment: The RN irrgated both ears and removed large amount of soft cerumen. Patient states post-irrigation hearing is much improved. Exam reveals clear bilateral external auditory canals with intact TMs that are opaque with good cone of light. Ear Complaint Course/Dx - Course Course Of Treatment: 63-year-old male presents with complaints of 2-3 weeks of bilateral ear fullness and decreased hearing. States he has a history of impacted cerumen which is required irrigation in the past. Denies fever, chills, ear pain, tinnitus, vertigo, or URI symptoms. Afebrile. Vital signs stable. Exam revealed bilateral cerumen impaction and otherwise unremarkable exam. His ears were irrigated when necessary and post irrigation patient reports improved hearing and exam reveals clear bilateral external auditory canals, intact TMs which were opaque with good cone of light. Patient is to follow-up with his primary care provider as needed. - Differential Dx/Diagnosis Differential Diagnosis/HQI/PQRI: Cerumen Impaction, Otitis Externa Provider Diagnosis: Impacted cerumen of both ears Discharge - Sign-Out/Discharge Documenting (check all that apply): Patient Departure All imaging exams completed and their final reports reviewed: No Studies - Discharge Plan Condition: Stable Disposition: HOME Patient Education Materials: Cerumen Impaction (ED) Referrals: Eleazar Carlos MD [Primary Care Provider] - If Needed - Billing Disposition and Condition Condition: STABLE Disposition: Home - Attestation Statements Provider Attestation: I was available for consult. Pt not seen by me.
== END 2019-01-28 21:40 | disposition home or self-care (01) ==
LOC: UCEAST 20:52
DX: H61.23 Impacted cerumen, bilateral (principal); I10 Essential (primary) hypertension; Z88.1 Allergy status to other antibiotic agents; Z88.8 Allergy status to other drugs, medicaments and biological substances
CPT/HCPCS: 99213; G0463

== ENCOUNTER 2019-03-14 13:52 | Emergency (ER) | payer BC ==
--- NOTE | 2019-03-14 14:01 | UC ---
Lower Extremity/Ankle HPI - HPI Summary HPI Summary: 63 yo male presents with LEFT great toe injury. He tells me that about 1.5 weeks ago he dropped his ipad on his left great toenail. Since that time has noticed a blood blister at the base of the nail. No pain with palpation or ambulation/weight bearing. - History of Current Complaint Stated Complaint: LT FOOT INJURY Time Seen by Provider: 03/14/19 14:01 Hx Obtained From: Patient Onset/Duration: Gradual Onset Severity Currently: None - Allergies/Home Medications Allergies/Adverse Reactions: Allergies Allergy/AdvReac Type Severity Reaction Status Date / Time carisoprodol [From Soma] Allergy Swelling Verified 03/14/19 14:04 Of Face,Lips,& Throat ciprofloxacin [From Cipro] Allergy Swelling Verified 03/14/19 14:04 Of Face,Lips,& Throat dextromethorphan Allergy Swelling Verified 03/14/19 14:04 [From NyQuil] Of Face,Lips,& Throat doxylamine [From NyQuil] Allergy Swelling Verified 03/14/19 14:04 Of Face,Lips,& Throat pseudoephedrine [From NyQuil] Allergy Swelling Verified 03/14/19 14:04 Of Face,Lips,& Throat PMH/Surg Hx/FS Hx/Imm Hx Cardiovascular History: Hypertension - Surgical History Surgical History: Yes Surgery Procedure, Year, and Place: tonsils; inguinal hernia - Family History Known Family History: Positive: Hypertension - Social History Occupation: Retired Lives: With Family Alcohol Use: Occasionally Alcohol Amount: 1 glass wine /day Substance Use Type: None Smoking Status (MU): Never Smoked Tobacco Review of Systems All Other Systems Reviewed And Are Negative: Yes Constitutional: Positive: Negative Skin: Positive: Other - Left great toe blood blister Respiratory: Positive: Negative Cardiovascular: Positive: Negative Musculoskeletal: Positive: Negative Neurological: Positive: Negative Psychological: Positive: Negative Physical Exam - Summary Physical Exam Summary: GENERAL: NAD. WDWN. No pain distress. SKIN: LEFT GREAT TOE: At base of nail there is a 7mm blood blister and area of subungal hematoma. NTTP. CHEST: No accessory muscle use. Breathing comfortably and in no distress. CV: Pulses intact. Cap refill <2seconds NEURO: Alert. PSYCH: Age appropriate behavior. Triage Information Reviewed: Yes Vital Signs: Vital Signs: Temp Pulse Resp BP Pulse Ox 99.2 F 79 18 120/72 97 03/14/19 14:00 03/14/19 14:00 03/14/19 14:00 03/14/19 14:00 03/14/19 14:00 Vital Signs Reviewed: Yes Procedures - Nail Trepanation Left Nail Trepanation Location: Left great toe Method of Drainage: nail cauterized Sterile Dressing Applied: Yes Finger Splint: No Lower Extremity Course/Dx - Course Course Of Treatment: A time out was performed, signed, and witnessed. All questions were answered. The area was cleansed with an alcohol pad. An electrocautery was used to scherer the proximal portion of the nail with underlying subungal hematoma. Dark red blood was able to be expressed. Blood blister flattened. Area bandaged with a band-aid. Pt tolerated well. Advised to change band-aid daily until well healed - Differential Dx/Diagnosis Provider Diagnosis: Subungual hematoma of great toe of left foot Discharge - Sign-Out/Discharge Documenting (check all that apply): Patient Departure All imaging exams completed and their final reports reviewed: No Studies - Discharge Plan Condition: Stable Disposition: HOME Patient Education Materials: Subungual Hematoma (ED) Referrals: Eleazar Carlos MD [Primary Care Provider] - Additional Instructions: If you develop a fever, shortness of breath, chest pain, new or worsening symptoms - please call your PCP or go to the ED immediately. Cover the area with a band-aid daily until well healed (likely 4-5 days) - Billing Disposition and Condition Condition: STABLE Disposition: Home
[2019-03-14 14:04] VITALS: BP 120/72
== END 2019-03-14 14:23 | disposition home or self-care (01) ==
LOC: UCEAST 13:52
DX: S90.212A Contusion of left great toe with damage to nail, initial encounter (principal); W22.8XXA Striking against or struck by other objects, initial encounter; Y92.9 Unspecified place or not applicable; I10 Essential (primary) hypertension
CPT/HCPCS: 11740; 99211; G0463

== ENCOUNTER 2019-06-29 09:22 | Emergency (ER) | payer BC ==
[2019-06-29 09:32] VITALS: BP 129/82
--- NOTE | 2019-06-29 10:12 | UC ---
Respiratory Complaint HPI - HPI Summary HPI Summary: Mr. Becerril has had sinus congestion with a nagging cough especially at night for the last several weeks. This happens to him periodically and he states that normally he gets a Z-Marky and Tessalon Perles and he is fine. He denies any fever chills or shortness of breath. - History of Current Complaint Chief Complaint: UCGeneralIllness Stated Complaint: COUGH Time Seen by Provider: 06/29/19 10:00 Hx Obtained From: Patient Onset/Duration: Gradual Onset Timing: Constant - And just Severity Initially: Mild - While here to get started 1 Severity Currently: Moderate Pain Intensity: 0 Associated Signs And Symptoms: Positive: Nasal Congestion, Sinus Discomfort - Allergies/Home Medications Allergies/Adverse Reactions: Allergies Allergy/AdvReac Type Severity Reaction Status Date / Time carisoprodol [From Soma] Allergy Swelling Verified 06/29/19 09:30 Of Face,Lips,& Throat ciprofloxacin [From Cipro] Allergy Swelling Verified 06/29/19 09:30 Of Face,Lips,& Throat dextromethorphan Allergy Swelling Verified 06/29/19 09:30 [From NyQuil] Of Face,Lips,& Throat doxylamine [From NyQuil] Allergy Swelling Verified 06/29/19 09:30 Of Face,Lips,& Throat pseudoephedrine [From NyQuil] Allergy Swelling Verified 06/29/19 09:30 Of Face,Lips,& Throat PMH/Surg Hx/FS Hx/Imm Hx Previously Healthy: Yes - Surgical History Surgical History: Yes Surgery Procedure, Year, and Place: tonsils; inguinal hernia - Family History Known Family History: Positive: Hypertension - Social History Alcohol Use: Weekly Alcohol Amount: 1 glass wine /day Substance Use Type: None Smoking Status (MU): Never Smoked Tobacco Review of Systems All Other Systems Reviewed And Are Negative: Yes Physical Exam - Summary Physical Exam Summary: He is nontoxic in appearance with stable vital signs. Triage Information Reviewed: Yes Appearance: Well-Appearing Vital Signs: Initial Vital Signs Temp 98 F 06/29/19 09:29 Pulse 72 06/29/19 09:29 Resp 16 06/29/19 09:29 BP 129/82 06/29/19 09:29 Pulse Ox 99 06/29/19 09:29 Vital Signs Reviewed: Yes ENT Exam: Normal ENT: Positive: Nasal congestion Respiratory: Positive: Chest non-tender, Lungs clear, Normal breath sounds, No respiratory distress Respiratory Course/Dx - Course Course Of Treatment: Because of the length of time that he's had symptoms I will relent to his wishes for an antibiotic prescription. I'm not sure that it's absolutely necessary. - Differential Dx/Diagnosis Provider Diagnosis: Bronchitis Discharge ED - Sign-Out/Discharge Documenting (check all that apply): Patient Departure All imaging exams completed and their final reports reviewed: No Studies - Discharge Plan Condition: Stable Disposition: HOME Patient Education Materials: Acute Bronchitis (ED) Referrals: No Primary Care Phys,NOPCP [Primary Care Provider] - - Billing Disposition and Condition Condition: STABLE Disposition: Home
== END 2019-06-29 10:17 | disposition home or self-care (01) ==
LOC: UCEAST 09:22
DX: J40 Bronchitis, not specified as acute or chronic (principal); R09.81 Nasal congestion; Z88.6 Allergy status to analgesic agent; Z88.1 Allergy status to other antibiotic agents; Z88.8 Allergy status to other drugs, medicaments and biological substances
CPT/HCPCS: 99212; G0463